=== PATIENT | female | born 1990 | race Two or more races ===

== ENCOUNTER 2023-04-19 07:32 | Inpatient (IN) | payer OTHER ==
[~2023-04-19] VITALS: Ht 160 cm; Wt 70.3 kg
[~2023-04-19 07:32] MED LIST: COZAAR50 MG PO
[2023-04-19 20:03] LABS: HEMATOCRIT 40.5 % (36.0-45.00); HEMOGLOBIN 13.5 g/dL (12.0-15.00); MEAN CELL VOLUME 89.4 fL (80.00-100.00); MEAN CORPUSCULAR HEMOGLOBIN 29.9 pg (27.00-32.0); MEAN CORPUSCULAR HGB CONC 33.5 g/dl (32.0-36.0); PLATELET COUNT 280 K/uL (150-450); RED BLOOD COUNT 4.52 M/uL (4.00-6.00); RED CELL DISTRIBUTION WIDTH 13.3 % (11.5-14.5)
[2023-04-20] MEDS ORDERED: IBU800 MG PO (07:56)
[2023-04-20] MEDS ORDERED: NEURONTIN300 MG PO (07:57)
== END 2023-04-20 11:04 | disposition home or self-care (01) | DRG 743 ==
LOC: CIR.AMB 07:32 → OB/GYN 16:33
PROVIDERS: ADMIT Obstetrics & Gynecology Gynecology; ATTEND Obstetrics & Gynecology Gynecology
PROC: 0UB90ZZ Excision of Uterus, Open Approach (ICD-10-PCS; principal; 2023-04-19 16:15)
DX: D25.2 Subserosal leiomyoma of uterus (principal); Z20.822 Contact with and (suspected) exposure to COVID-19